=== PATIENT | male | born 1985 | race Caucasian/White ===

== ENCOUNTER 2024-02-08 14:19 | Emergency (ER) | payer MEDICAID ==
[~2024-02-08] VITALS: Ht 172.7 cm; Wt 124.7 kg
[2024-02-08 14:30] VITALS: BP_SYST 144; PULSE 96; RESP 18; TEMP 99.2; O2SAT 96
[2024-02-08] MEDS: DIPHTH,PERTUSS(ACELL),TET VAC 0.5 ML VIAL (Tdap) I.M. ONE (14:56)
[2024-02-08] MEDS: BACITRACIN 1 GM OINT TP ONE (14:59)
[2024-02-08] MEDS: LIDOCAINE 1% 10 MG/ML, 20 ML MDV INJ ONE (14:59)
[2024-02-08] MEDS ORDERED: IBUP-1971 PO (16:19)
[2024-02-08 16:26] VITALS: BP_SYST 144; PULSE 96; RESP 18; TEMP 99.2; O2SAT 96
== END 2024-02-08 16:30 | disposition home or self-care (01) ==
LOC: SED 14:19
DX: S01.81XA Laceration without foreign body of other part of head, initial encounter (principal); S83.91XA Sprain of unspecified site of right knee, initial encounter; Y04.0XXA Assault by unarmed brawl or fight, initial encounter; Y93.89 Activity, other specified; Y92.89 Other specified places as the place of occurrence of the external cause; Y99.8 Other external cause status
CPT/HCPCS: 70450-TC; 73564; 90715; 99285; J2001